=== PATIENT | male | born 1960 | race Caucasian/White ===

== ENCOUNTER 2024-12-08 09:23 | Inpatient (IN) | payer MEDICAID, OTHER ==
[~2024-12-08] VITALS: Ht 182.9 cm; Wt 96.6 kg
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
[2024-12-08] MEDS: SODIUM CHLORIDE 0.9% 1,000 ML IV ONE ×2 (10:00→10:26)
[2024-12-08] MEDS: CLINDAMYCIN 300MG IV 50 ML IV ONE (10:31)
[2024-12-08 10:44] LABS: Hematocrit 41.0 % (41.0-53.0); Hemoglobin 14.5 g/dL (13.5-17.5); Mean Corpuscular Hemoglobin 30.9 pg (28.0-32.0); Mean Corpuscular Volume 87.6 fL (80.0-100.0); Nucleated Red Blood Cells % 0.0 %
--- NOTE | 2024-12-08 10:45 | DVH ---
CLINICAL INFORMATION: Septic joint. TECHNIQUE: Axial CT images of the left elbow were obtained without IV contrast. Coronal and sagittal reformatted images were obtained, reviewed, and stored. All CT scans at this medical facility are pe rformed using dose modulation techniques as appropriate to a performed exam including the following: Automated exposure control was utilized; adjustment of the MA and/or KV according to patient size; an d use of iterative reconstruction technique. CTDIvol = 50.88 mGy DLP = 1839.22 mGy-cm COMPARISON: None FINDINGS: No acute fracture or dislocation. No erosive changes or cortical destruction are seen. No significant joint effusion. Moderate subcutaneous edema and stranding is seen around the elbow and a djacent portions of the distal aspect of the left upper arm and proximal aspect of the left forearm, most prominent posteriorly. There are locules of gas at the posterior aspect of the elbow, along the subcutaneous tissues and adjacent to the superficial fascial planes of the posterior musculature, inc luding the triceps musculature and proximal forearm musculature. Limited evaluation for abscess on no ncontrast enhanced exam. IMPRESSION: 1. Prominent subcutaneous edema and inflammatory stranding along the posterior aspect of the elbow an d adjacent portions of the forearm and upper arm, likely cellulitis in the appropriate clinical setti ng. Locules of gas are seen posteriorly, suspected necrotizing infection. No gas is seen coursing panchito ng the deeper fascial planes at this time to suggest necrotizing fasciitis, although correlation with clinical findings is needed. 2. Limited evaluation for abscess without IV contrast. Abscess can not be excluded. If there is clini wendy concern for abscess, MRI without and with contrast could be considered to further characterize. 3. No significant joint effusion to suggest septic arthritis at this time. 4. No CT evidence for osteomyelitis.
[2024-12-08 11:05] LABS: Chloride 100 mmol/L (98-107); Potassium 3.6 mmol/L (3.5-5.1)
[2024-12-08 11:06] LABS: Anion Gap 10 (5-15); Carbon Dioxide 24 mmol/L (20-31)
[2024-12-08 11:07] LABS: Calcium 9.3 mg/dL (8.7-10.4)
[2024-12-08 11:08] LABS: Sodium 134 mmol/L (136-145)
[2024-12-08 11:11] LABS: BUN/Creatinine Ratio 10.8 (10.0-20.0); Blood Urea Nitrogen 12 mg/dL (9-23)
[2024-12-08 11:13] LABS: Glucose 125 mg/dL (74-106)
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
[2024-12-08 13:10] LABS: INR 1.03 (0.9-1.15); Prothrombin Time 10.9 sec (9.3-11.8)
[2024-12-08] MEDS ORDERED: PROPOFOL 10 MG/ML 20 ML IV ONE (13:29)
[2024-12-08] MEDS ORDERED: fentaNYL CITRATE 100 MCG/2 ML VL ONE (13:29)
[2024-12-08] MEDS ORDERED: HYDROmorphone HCL 2 MG/ML VL/or syr ONE (13:40)
[2024-12-08] MEDS: ceFAZolin 1GM/50ML 50 ML IV ONE ×2 (13:47→13:52)
[2024-12-08] MEDS ORDERED: ONDANSETRON HCL 4 MG/2 ML VIAL ONE (14:11)
[2024-12-08] MEDS ORDERED: NITROGLYCERIN 0.4 MG SL TAB SL PRN (14:15)
[2024-12-08] MEDS ORDERED: MORPHINE SULFATE INJ 2 MG/ml SYRG IV PRN (14:15)
[2024-12-08 14:32] VITALS: PULSE 101; RESP 13; O2SAT 95
[2024-12-08] MEDS ORDERED: HYDROcodone-ACET 5/325MG TAB PO PRN (14:45)
[2024-12-08] MEDS ORDERED: HYDROmorphone HCL 2 MG/ML VL/or syr IV PRN (14:45)
[2024-12-08] MEDS ORDERED: ONDANSETRON HCL 4 MG/2 ML VIAL IV PRN (14:45)
[2024-12-08] MEDS ORDERED: HYDROcodone-ACET 10/325MG TAB PO PRN (14:45)
[2024-12-08] MEDS ORDERED: ACETAMINOPHEN IV 1000 MG/100ML (10MG/ML) IV PRN (14:45)
--- NOTE | 2024-12-08 14:56 | DVHOP2 ---
Operative Report - 2 Report Details Date: 12/08/24 Preop Diagnosis: Necrotizing soft tissue infection of the left elbow Postop Diagnosis: Same Surgeon: Haylee Pires MD Anesthesiologist: Carrie Reynolds Anesthesia: General Consent: The patient was informed of the risks and benefits of the procedure. These include but are not limited to complications of anesthesia, postoperative infection, incomplete relief of symptoms, recurrence of symptoms, damage to blood vessels, nerves and tendons, deep venous thrombosis, pulmonary embolism and possible need for repeat surgery in the future. Complications: None Estimated Blood Loss: 3 mL Findings: Soft tissue edema with minor necrosis, fractured olecranon bursa posteriorly, seropurulent fluid drainage Name of Procedure Performed Left elbow sharp excisional debridement Procedure Details Procedure Details: Upon arrival to the operating room patient was transferred to the operating table and placed in the supine position with arms extended. General endotracheal anesthesia was induced. Patient was prepped and draped in the standard sterile surgical fashion with Betadine Betadine. Left elbow was noted to be edematous, erythematous, with 2 puncture wounds actively draining seropurulent fluid on the posterior aspect of the elbow. The area overlying those 2 puncture wounds was the most fluctuant. A vertical incision was made in the posterior aspect of the elbow, immediately seropurulent fluid started e manating. Incision is approximately 5-6 cm. Cultures were taken. All fluid was then expressed from the wound. Minor subcutaneous fat necrosis was noted and was sharply excised. Fascia and muscle was free of necrosis. No further necrosis was noted. I then noted a fractured olecranon bursa posteriorly. I then obtained hemostasis with cautery device of all raw bleeding surfaces, until hemostasis was achieved. I then irrigated the wound copiously with over a L of saline Betadine mixture. Olecranon bursa was repaired using a 2 0 Vicryl stitch in [id number] fashion. At this point I performed the final inspection of the wound, no pus/necrosis or bleeding noted. Wound was packed with 1 in iodoform gauze. Wound was dressed with Telfa pad, 4 x 4 gauze, ABD pad, and held in place with a 4 in Kerlix roll/Librado wrap. All counts complete and correct at the end of the procedure. Patient tolerated the procedure well. Patient was transferred to the PACU in stable condition. Condition Stable Disposition Still a Patient HAYLEE SPIVEY MD Dec 08, 2024 14:56
[2024-12-08] MEDS: ACETAMINOPHEN IV 100 ML IV ONE (15:12)
[2024-12-08] MEDS: CLINDAMYCIN 600MG IV 50 ML IV SCH (15:18)
[2024-12-08] MEDS ORDERED: VANCOMYCIN PER PHARMACY 0 MG IV SCH (15:30)
[2024-12-08] MEDS: PIPERACILLIN-TAZOB 3.375GM 100 ML IV SCH (16:07)
[2024-12-08 16:26] VITALS: BP 141/74; PULSE 86; RESP 16; TEMP 97.8; O2SAT 94
[2024-12-08] MEDS: VANCOMYCIN 1GM/250ML KIT 250 ML IV SCH ×2 (19:30→20:05)
[2024-12-08 21:00] VITALS: BP 166/94; PULSE 60; RESP 18; TEMP 97.6; O2SAT 96
[2024-12-08 22:00] VITALS: BP 125/66
[2024-12-09 01:00] VITALS: BP 127/75; PULSE 80; RESP 17; TEMP 97.3; O2SAT 93
[2024-12-09 05:00] VITALS: BP 134/73; PULSE 86; RESP 17; TEMP 97.6; O2SAT 95
[2024-12-09 07:41] LABS: Hematocrit 37.8 % (41.0-53.0); Hemoglobin 13.4 g/dL (13.5-17.5); Mean Corpuscular Hemoglobin 31.2 pg (28.0-32.0); Mean Corpuscular Volume 88.4 fL (80.0-100.0); Nucleated Red Blood Cells % 0.0 %
[2024-12-09 08:05] LABS: Alanine Aminotransferase 16 U/L (7-40); Albumin 3.8 g/dL (3.2-4.8); Alkaline Phosphatase 75 U/L (46-116); Anion Gap 10 (5-15); BUN/Creatinine Ratio 15.1 (10.0-20.0); Bilirubin, Total 0.6 mg/dL (0.2-1.0); Blood Urea Nitrogen 13 mg/dL (9-23); Calcium 8.8 mg/dL (8.7-10.4); Carbon Dioxide 22 mmol/L (20-31); Chloride 105 mmol/L (98-107); Sodium 137 mmol/L (136-145); Total Protein 6.5 g/dL (5.7-8.2)
[2024-12-09 08:11] LABS: Glucose 127 mg/dL (74-106); Potassium 3.5 mmol/L (3.5-5.1)
--- NOTE | 2024-12-09 08:45 | DVHPN2 ---
Progress Note - Surgical Date Seen: Dec 09, 2024 Post op day Post op day: 1 Subjective Patient reports: Feels better (Feeling better, pain left elbow has improved, still feels she feels, he is afebrile with vital signs stable.) Review of Systems: Not Done Objective Vital signs Vital Sign Date Time Temp Pulse Resp B/P (MAP) Pulse Ox O2 Delivery O2 Flow Rate FiO2 12/09/24 05:00 97.6 86 17 134/73 (93) 95 97.6 12/08/24 20:15 Room Air* 0 21 Total Intake and Output 12/08/24 12/08/24 12/09/24 15:00 23:00 07:00 Intake Total 550 ml 275 ml Balance 550 ml 275 ml Medications Current Medications Medications Dose Ordered Sig/Ina Route Start Time Stop Time Status Last Admin Dose Admin Piperacillin Sod/ Tazobactam Sod 100 ml @ 100 mls/hr Q8H IV 12/08/24 14:00 12/09/24 06:27 100 MLS/HR Clindamycin Phosphate 50 ml @ 50 mls/hr Q8HR IV 12/08/24 14:00 12/09/24 05:17 50 MLS/HR Nitroglycerin 0.4 mg Q5MINP PRN SL 12/08/24 14:15 Morphine Sulfate 2 mg Q30M PRN IV 12/08/24 14:15 Acetaminophen/ Hydrocodone Bitart 1 tab Q6HR PRN PO 12/08/24 14:45 Acetaminophen/ Hydrocodone Bitart 1 tab Q6HR PRN PO 12/08/24 14:45 Vancomycin HCl 0 ml @ 0 mls/hr UD IV 12/08/24 15:30 Laboratory Laboratory Tests 12/09/24 06:57 Test 12/09/24 06:57 Range/Units Serum Glucose 127 H 74-106 mg/dL Examination: GENERAL:Normal, MSK:Abnormal (Left elbow with posterior wound, wound without necrosis/pus/drainage, medial elbow and upper arm with patchy erythema (unchanged from yesterday), nontender. Very slight edema on left forearm and left hand (much improved from yesterday).) Labs and/or images reviewed: Labs reviewed by me (Leukocytosis down trended by 1 point) Problem List/Assessment/Plan Problems: (1) Necrotizing soft tissue infection Assessment and Plan Mr. Dougherty is a 64-year-old male who presented yesterday with necrotizing soft tissue infection of the left elbow. Currently postop day 1 from sharp excisional debridement of the left elbow. Wound looking good today no pus/drainage/necrosis. Elbow edema has markedly improved. Cellulitic area of the medial elbow and upper arm still the same as yesterday. Leukocytosis down trended by 1 point from 20.1 to X 19.1. Recommend continuation of IV antibiotics. Culture results still pending. 1. Continue with broad-spectrum antibiotics for at least 24 more hours 2. Also wound nurse for the possibility of wound VAC placement 3. Follow-up wound culture results 4. Continue with b.i.d. dressing changes as per order for the time being 5. We will obtain CBC and CMP for tomorrow a.m. My Orders My Orders Orders - HAYLEE SPIVEY MD Procedure Category Date Status Time Vancomycin Per DEVI 12/08/24 In Process Pharmacy Protoc 12:54 Piperacillin-Tazob PHA 12/08/24 In Process 3.375gm (Zosyn 3.375g 14:00 Clindamycin 600mg Iv PHA 12/08/24 In Process (Cleocin Iv) 14:00 Anaerobic Culture TAE 12/08/24 In Process 14:05 Gram Stain TAE 12/08/24 In Process 14:05 Routine Bacterial TAE 12/08/24 In Process Culture 14:05 Admit ADMIT 12/08/24 Transmitted 14:04 Oxygen By Nasal RT 12/08/24 Transmitted Cannula 14:04 Nitroglycerin PHA 12/08/24 In Process Sublingual (Ntrostat 14:15 Morphine Sulfate PHA 12/08/24 In Process Injection 14:15 Stat Ekg For Chest DEVI 12/08/24 In Process Pain 14:04 Notify Of Changes DEVI 12/08/24 In Process From Base 14:04 Meat Lugger For DEVI 12/08/24 In Process 24 Hours 14:04 Emergency Dysrhythmia DEVI 12/08/24 In Process Protocol 14:04 Rhythm Strips Once DEVI 12/08/24 In Process Every Shift 14:04 Hydrocodone-Acet PHA 12/08/24 In Process 10/325mg Tab (Campo 14:45 Hydrocodone-Acet PHA 12/08/24 In Process 5/325mg Tab (Campo 14:45 Change Dressing Bid DEVI 12/09/24 In Process 07:00 Vancomycin Per PHA 12/08/24 In Process Pharmacy 15:30 Hepatitis C Antibody LAB 12/08/24 In Process 18:17 Hepatitis A Total LAB 12/08/24 In Process Antibody 18:17 Clear Liq Diet DIET 12/08/24 Transmitted Dinner Plan discussed with Plan discussed with: Patient Visit Coding Surgery Date of Service if different f: Dec 09, 2024 Billing Provider: HAYLEE SPIVEY MD Surgery Visit Codes: [id number] INP/OBS CARE(HIGH) HAYLEE SPIVEY MD Dec 09, 2024 08:45
[2024-12-09 09:00] VITALS: BP 149/71; PULSE 81; RESP 18; TEMP 98.1; O2SAT 93
[2024-12-09 10:37] LABS: Hepatitis A Total Antibody Positive (Negative); Hepatitis C Antibody Negative (Negative)
[2024-12-09 13:00] VITALS: BP 146/84; PULSE 83; RESP 18; TEMP 98.1; O2SAT 94
[2024-12-09] MEDS: VANCOMYCIN 1.5GM/250ML 250 ML IV SCH (14:21)
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
[2024-12-09] MEDS ORDERED: ONDANSETRON HCL 4 MG/2 ML VIAL IV PRN (16:00)
[2024-12-09] MEDS ORDERED: ACETAMINOPHEN 325 MG TAB PO PRN (16:00)
[2024-12-09 17:02] VITALS: BP 146/77; PULSE 85; RESP 18; TEMP 98.1; O2SAT 94
[2024-12-09 21:00] VITALS: BP 136/79; PULSE 86; RESP 16; TEMP 97.7; O2SAT 96
[2024-12-10] VITALS (7 sets, daily range): BP systolic 129–146; BP diastolic 74–89; PULSE 70–78; RESP 16–18; TEMP 97.7–98.6; O2SAT 94–98
[2024-12-10 06:48] LABS: Hematocrit 32.7 % (41.0-53.0); Hemoglobin 11.6 g/dL (13.5-17.5); Mean Corpuscular Hemoglobin 31.2 pg (28.0-32.0); Mean Corpuscular Volume 87.4 fL (80.0-100.0); Nucleated Red Blood Cells % 0.0 %
[2024-12-10 06:49] LABS: Alanine Aminotransferase 26 U/L (7-40); Alkaline Phosphatase 58 U/L (46-116); Anion Gap 9 (5-15); BUN/Creatinine Ratio 15.7 (10.0-20.0); Blood Urea Nitrogen 14 mg/dL (9-23); Carbon Dioxide 25 mmol/L (20-31); Chloride 107 mmol/L (98-107); Glucose 99 mg/dL (74-106); Sodium 141 mmol/L (136-145)
[2024-12-10 06:51] LABS: Albumin 3.4 g/dL (3.2-4.8); Bilirubin, Total 0.5 mg/dL (0.2-1.0)
[2024-12-10 06:59] LABS: Calcium 8.0 mg/dL (8.7-10.4); Potassium 3.3 mmol/L (3.5-5.1); Total Protein 5.6 g/dL (5.7-8.2)
--- NOTE | 2024-12-10 10:29 | DVHPN2 ---
Progress Note - Surgical Date Seen: Dec 10, 2024 Post op day Post op day: 2 Subjective Patient reports: Feels better (States that swelling is improving left upper extremity, hence running muscle improved we will to move fingers better now. Complaining of some shortness of breath especially when he gets up to bathroom, but other than going to the bathroom patient is not ambulating all. Patient also is not doing IS. Vital signs stable) Review of Systems: Deferred Objective Vital signs Vital Sign Date Time Temp Pulse Resp B/P (MAP) Pulse Ox O2 Delivery O2 Flow Rate FiO2 12/10/24 09:00 98.3 74 18 143/78 (99) 97 98.3 12/09/24 20:00 Nasal Cannula* 2 28 Total Intake and Output 12/09/24 12/09/24 12/10/24 15:00 23:00 07:00 Intake Total 100 ml 950 ml 950 ml Output Total 2 ml Balance 100 ml 950 ml 948 ml Medications Current Medications Medications Dose Ordered Sig/Ina Route Start Time Stop Time Status Last Admin Dose Admin Piperacillin Sod/ Tazobactam Sod 100 ml @ 100 mls/hr Q8H IV 12/08/24 14:00 12/10/24 00:29 100 MLS/HR Clindamycin Phosphate 50 ml @ 50 mls/hr Q8HR IV 12/08/24 14:00 12/10/24 05:38 50 MLS/HR Nitroglycerin 0.4 mg Q5MINP PRN SL 12/08/24 14:15 Morphine Sulfate 2 mg Q30M PRN IV 12/08/24 14:15 Acetaminophen/ Hydrocodone Bitart 1 tab Q6HR PRN PO 12/08/24 14:45 Acetaminophen/ Hydrocodone Bitart 1 tab Q6HR PRN PO 12/08/24 14:45 Hold Vancomycin HCl 0 ml @ 0 mls/hr UD IV 12/08/24 15:30 Vancomycin HCl 250 ml @ 166.667 mls/hr Q12H IV 12/09/24 13:00 12/10/24 01:44 166.667 MLS/HR Ondansetron HCl 4 mg Q6HPRN PRN IV 12/09/24 16:00 Acetaminophen 325 mg Q6HP PRN PO 12/09/24 16:00 Laboratory Laboratory Tests 12/10/24 06:03 Test 12/10/24 06:03 Range/Units Serum Glucose 99 74-106 mg/dL Microbiology Date/Time Source Procedure Growth Status 12/08/24 14:03 Other Gram Stain - Final Resulted 12/08/24 14:03 Other Anaerobic Culture - Preliminary Resulted 12/08/24 14:03 Other Aerobic Culture - Preliminary Resulted 12/08/24 10:22 Blood Blood Culture - Preliminary NO GROWTH AFTER 24 HOURS OF INCUBATION. Resulted Examination: GENERAL:Normal, MSK:Abnormal (Left elbow slight edema, no edema in the forearm, slight hand edema without finger edema, patch of erythema on the medial aspect of the elbow and upper arm improved from yesterday. Wound without pus/drainage/necrosis.) Problem List/Assessment/Plan Assessment and Plan Mr. Dougherty is a 64-year-old male who presented yesterday with necrotizing soft tissue infection of the left elbow. Currently postop day 2 from sharp excisional debridement of the left elbow. Wound looking good today no pus/drainage/necrosis. Wound continues to improve still pending evaluation from wound nurse for possible wound VAC placement. Cellulitis on the medial aspect of the elbow and upper arm slightly improved but still present. Leukocytosis still holding in 19. Recommend continuation of IV antibiotics. Culture results still pending. 1. Continue with broad-spectrum antibiotics, still pending cultures 2. Also wound nurse for the possibility of wound VAC placement 3. Follow-up wound culture results 4. Continue with b.i.d. dressing changes as per order for the time being 5. We will obtain CBC and CMP for tomorrow a.m. 6. Out of bed and ambulate at least t.i.d. 7. Nurse to bring incentive spirometer to the patient My Orders My Orders Orders - HAYLEE SPIVEY MD Procedure Category Date Status Time Vancomycin PHA 12/09/24 In Process 1.5gm/250ml 13:00 Vancomycin,Trough LAB 12/11/24 Verified 00:00 Vancomycin Per DEVI 12/11/24 In Process Pharmacy Protoc 01:00 Creatinine LAB 12/11/24 Verified 00:00 Plan discussed with Plan discussed with: Patient Visit Coding Surgery Date of Service if different f: Dec 10, 2024 Billing Provider: HAYLEE SPIVEY MD Surgery Visit Codes: [id number] INP/OBS CARE(HIGH) HAYLEE SPIVEY MD Dec 10, 2024 10:29
--- NOTE | 2024-12-10 11:38 | DVHPN2 ---
Subjective Patient continues to report having shortness of breath with ambulation. Reviewed: Care Plan, H&P, Labs, Medications Changes from previous H/P or p: No Changes General: Per HPI Skin: Other (left elbow dressing dry and intact) Objective Vitals Vital Signs Date Time Temp Pulse Resp B/P (MAP) Pulse Ox O2 Delivery O2 Flow Rate FiO2 12/10/24 09:00 98.3 74 18 143/78 (99) 97 98.3 12/10/24 08:00 Nasal Cannula* 2 28 Intake/Output Intake and Output 12/10/24 07:00 Intake Total 2000 ml Output Total 2 ml Balance 1998 ml Intake Oral 1100 ml IV Total 900 ml Output Urine Total 2 ml # Voids 2 # Bowel Movements 2 General Appearance: Alert, Oriented X3, Cooperative, mild distress HEENT: Atraumatic, PERRLA Cardiovascular: Normal S1, Normal S2 Musculoskeletal: Normal sensory function, Normal motor function Skin: Dry, Intact Psych/Mental Status: Mental status NL, Mood NL Medications Current Medications Medications Dose Ordered Sig/Ina Route Start Time Stop Time Status Last Admin Dose Admin Piperacillin Sod/ Tazobactam Sod 100 ml @ 100 mls/hr Q8H IV 12/08/24 14:00 12/10/24 00:29 100 MLS/HR Clindamycin Phosphate 50 ml @ 50 mls/hr Q8HR IV 12/08/24 14:00 12/10/24 05:38 50 MLS/HR Nitroglycerin 0.4 mg Q5MINP PRN SL 12/08/24 14:15 Morphine Sulfate 2 mg Q30M PRN IV 12/08/24 14:15 Acetaminophen/ Hydrocodone Bitart 1 tab Q6HR PRN PO 12/08/24 14:45 Acetaminophen/ Hydrocodone Bitart 1 tab Q6HR PRN PO 12/08/24 14:45 Hold Vancomycin HCl 0 ml @ 0 mls/hr UD IV 12/08/24 15:30 Vancomycin HCl 250 ml @ 166.667 mls/hr Q12H IV 12/09/24 13:00 12/10/24 01:44 166.667 MLS/HR Ondansetron HCl 4 mg Q6HPRN PRN IV 12/09/24 16:00 Acetaminophen 325 mg Q6HP PRN PO 12/09/24 16:00 Laboratory Results Laboratory Tests 12/10/24 06:03 Chemistry Test 12/10/24 06:03 Albumin 3.4 g/dL (3.2-4.8) Calcium Level 8.0 mg/dL (8.7-10.4) L Total Protein 5.6 g/dL (5.7-8.2) L Lipid panel Test 12/10/24 06:03 Cholesterol Level Pending HDL Cholesterol Pending Triglycerides Level Pending LFT Test 12/10/24 06:03 Alanine Aminotransferase (ALT) 26 U/L (7-40) Alkaline Phosphatase 58 U/L (46-116) Aspartate Amino Transferase (AST) 24 U/L (13-40) Total Bilirubin 0.5 mg/dL (0.2-1.0) HgA1c, TSH Test 12/10/24 06:03 Thyroid Stimulating Hormone (TSH) Pending Microbiology Microbiology Date/Time Source Procedure Growth Status 12/08/24 14:03 Other Gram Stain - Final Resulted 12/08/24 14:03 Other Anaerobic Culture - Preliminary Resulted 12/08/24 14:03 Other Aerobic Culture - Preliminary Resulted 12/08/24 10:22 Blood Blood Culture - Preliminary NO GROWTH AFTER 48 HOURS OF INCUBATION. Resulted Labs and/or images reviewed: Labs reviewed by me, Image(s) reviewed by me Assessment/Plan Assessment/Plan Impression: -necrotizing fasciitis of the left elbow -sepsis Plan: Events: Patient continues to have elevated white blood cell count. Afebrile. Continues to have some shortness of breath. Discussed case with surgeon. K -chest x-ray -out of bed as tolerated -incentive spirometer -wound care -continue antibiotic therapy with Zosyn, vancomycin, clindamycin -pain management -repeat labs in a.m. -potassium replacement Total time spent with patient discussing and formulating plan of care: 35 minutes. This medical document was created using an electronic medical record system with [email or web address] dictation system. Although this document has been carefully reviewed, there may still be some phonetic and typographical errors. These areas are purely typographical due to imperfections of the software programs, and do not reflect any compromise in the patient's medical care. Plan discussed with: Patient, Other (RN) My Orders Orders - THALIA RYAN NP Procedure Category Date Status Time Regular Diet DIET 12/09/24 Transmitted Dinner Ondansetron Hcl PHA 12/09/24 In Process (Zofran) 16:00 Acetaminophen Tablet PHA 12/09/24 In Process (Tylenol Tablet) 16:00 Sod Chl 0.9%/ Kcl PHA 12/10/24 In Process [id number] 11:00 Basic Metabolic Panel LAB 12/11/24 Verified 05:00 Basic Metabolic Panel LAB 12/12/24 Verified 05:00 Basic Metabolic Panel LAB 12/13/24 Verified 05:00 Complete Blood Count LAB 12/11/24 Verified 05:00 Complete Blood Count LAB 12/12/24 Verified 05:00 Complete Blood Count LAB 12/13/24 Verified 05:00 Chest Xray 1 View XY 12/10/24 Logged 11:09 Creatine Kinase LAB 12/10/24 In Process 11:09 Thyroid Stimulating LAB 12/10/24 In Process Hormone 11:09 Lipid Panel LAB 12/10/24 In Process 11:09 Date of Service: Dec 10, 2024 Billing Provider: THALIA RYAN NP Common Visit Codes: [id number] INP/OBS CARE(HIGH) THALIA RYAN NP Dec 10, 2024 11:38
[2024-12-10 11:43] LABS: Creatine Kinase IFCC 140 U/L (46-171)
--- NOTE | 2024-12-10 12:41 | DVH ---
CHEST RADIOGRAPH Indication: PNA VS CHF Technique: Single frontal view of the chest was obtained Comparison: None FINDINGS: Lines and Tubes: None Lungs: No focal consolidation. Pleura: No effusion. No pneumothorax. Cardiomediastinal contours: Unremarkable Bones: No acute osseous abnormality. IMPRESSION: No acute cardiopulmonary disease.
[2024-12-10] MEDS: SOD CHL 0.9%/ KCL 40MEQ 1,000 ML IV ONE (16:25)
[2024-12-10 20:12] LABS: Triglycerides 128 mg/dL (< 150)
[2024-12-10 20:14] LABS: Cholesterol 151 mg/dL (< 200)
[2024-12-10 20:17] LABS: HDL Cholesterol 20 mg/dL (40-59)
[2024-12-11] VITALS (11 sets, daily range): BP systolic 120–144; BP diastolic 70–101; PULSE 70–80; RESP 16–19; TEMP 97.7–98.4; O2SAT 9–100
[2024-12-11 06:31] LABS: Hematocrit 34.1 % (41.0-53.0); Hemoglobin 12.2 g/dL (13.5-17.5); Mean Corpuscular Hemoglobin 31.7 pg (28.0-32.0); Mean Corpuscular Volume 88.3 fL (80.0-100.0); Nucleated Red Blood Cells % 0.0 %
[2024-12-11 06:41] LABS: Anion Gap 10 (5-15); Carbon Dioxide 26 mmol/L (20-31); Sodium 144 mmol/L (136-145)
[2024-12-11 06:43] LABS: Calcium 8.2 mg/dL (8.7-10.4); Chloride 108 mmol/L (98-107); Potassium 3.3 mmol/L (3.5-5.1)
[2024-12-11 06:47] LABS: BUN/Creatinine Ratio 13.3 (10.0-20.0); Blood Urea Nitrogen 12 mg/dL (9-23); Glucose 84 mg/dL (74-106)
--- NOTE | 2024-12-11 09:12 | DVHPN2 ---
Subjective Patient reports phlegm, stage shortness has improved. Reviewed: Care Plan, H&P, Labs, Medications Changes from previous H/P or p: Changes General: Per HPI Skin: Other (left elbow dressing dry and intact) Objective Vitals Vital Signs Date Time Temp Pulse Resp B/P (MAP) Pulse Ox O2 Delivery O2 Flow Rate FiO2 12/11/24 05:00 97.7 80 16 144/101 (115) 9 97.7 12/10/24 20:00 Room Air* 0 21 Intake/Output Intake and Output 12/11/24 07:00 Intake Total 2050 ml Balance 2050 ml Intake Oral 1750 ml IV Total 300 ml # Voids 9 # Bowel Movements 1 General Appearance: Alert, Oriented X3, Cooperative, mild distress HEENT: Atraumatic, PERRLA Cardiovascular: Normal S1, Normal S2 Musculoskeletal: Normal sensory function, Normal motor function Skin: Dry, Intact Psych/Mental Status: Mental status NL, Mood NL Medications Current Medications Medications Dose Ordered Sig/Ina Route Start Time Stop Time Status Last Admin Dose Admin Piperacillin Sod/ Tazobactam Sod 100 ml @ 100 mls/hr Q8H IV 12/08/24 14:00 12/11/24 09:05 100 MLS/HR Clindamycin Phosphate 50 ml @ 50 mls/hr Q8HR IV 12/08/24 14:00 12/11/24 05:44 50 MLS/HR Nitroglycerin 0.4 mg Q5MINP PRN SL 12/08/24 14:15 Morphine Sulfate 2 mg Q30M PRN IV 12/08/24 14:15 Acetaminophen/ Hydrocodone Bitart 1 tab Q6HR PRN PO 12/08/24 14:45 Acetaminophen/ Hydrocodone Bitart 1 tab Q6HR PRN PO 12/08/24 14:45 Hold Vancomycin HCl 0 ml @ 0 mls/hr UD IV 12/08/24 15:30 Vancomycin HCl 250 ml @ 166.667 mls/hr Q12H IV 12/09/24 13:00 12/11/24 01:58 166.667 MLS/HR Ondansetron HCl 4 mg Q6HPRN PRN IV 12/09/24 16:00 Acetaminophen 325 mg Q6HP PRN PO 12/09/24 16:00 Laboratory Results Laboratory Tests 12/11/24 05:50 Chemistry Test 12/11/24 05:50 Calcium Level 8.2 mg/dL (8.7-10.4) L Microbiology Microbiology Date/Time Source Procedure Growth Status 12/08/24 14:03 Other Gram Stain - Final Resulted 12/08/24 14:03 Other Anaerobic Culture - Preliminary Resulted 12/08/24 14:03 Other Aerobic Culture - Preliminary Resulted 12/08/24 10:22 Blood Blood Culture - Preliminary NO GROWTH AFTER 48 HOURS OF INCUBATION. Resulted Labs and/or images reviewed: Labs reviewed by me, Image(s) reviewed by me Assessment/Plan Assessment/Plan Impression: -necrotizing fasciitis of the left elbow -sepsis Plan: Events: White blood cell count improving. Patient reporting having some facial swelling. Chest x-ray unremarkable. CPK normal. -incentive spirometer q.1h while awake -stop vancomycin given preliminary cultures. Continue Zosyn and clindamycin -ambulate, out of bed as tolerated -wound care -continue Zosyn and clindamycin -pain management -repeat labs in a.m. -potassium replacement Total time spent with patient discussing and formulating plan of care: 35 minutes. This medical document was created using an electronic medical record system with [employer] dictation system. Although this document has been carefully reviewed, there may still be some phonetic and typographical errors. These areas are purely typographical due to imperfections of the software programs, and do not reflect any compromise in the patient's medical care. Plan discussed with: Patient, Other (RN) My Orders Orders - THALIA RYAN NP Procedure Category Date Status Time Basic Metabolic Panel LAB 12/12/24 Verified 05:00 Basic Metabolic Panel LAB 12/13/24 Verified 05:00 Complete Blood Count LAB 12/12/24 Verified 05:00 Complete Blood Count LAB 12/13/24 Verified 05:00 Chest Xray 1 View XY 12/10/24 Resulted 11:09 * Dietary Consult CONS 12/10/24 Transmitted 15:19 Oob To Chair DEVI 12/11/24 Transmitted 09:09 Ambulate DEVI 12/11/24 Transmitted 09:09 Incentive Spirometry ORDERS 12/11/24 Verified Q 1hr 09:10 Date of Service: Dec 11, 2024 Billing Provider: THALIA RYAN NP Common Visit Codes: [id number] INP/OBS CARE(HIGH) THALIA RYAN NP Dec 11, 2024 09:12
[2024-12-11] MEDS: ALBUTEROL SULF 2.5 MG/0.5ML(0.5%) NEB SOLN NEB SCH (11:30)
[2024-12-11] MEDS: ALBUTEROL SULF 2.5 MG/0.5ML(0.5%) NEB SOLN NEB ONE (11:30)
[2024-12-11] MEDS: POTASSIUM CHL 20 Meq TABLET PO ONE (11:34)
[2024-12-11] MEDS: diphenhdrAMINE HCL 50 MG/1 ML VL IV ONE (11:34)
[2024-12-11] MEDS: methylPREDNISolone SOD SUCC 125 MG/2 ML VL IV ONE (11:35)
--- NOTE | 2024-12-11 13:58 | DVHPN2 ---
Progress Note - Surgical Date Seen: Dec 11, 2024 Post op day Post op day: 3 Subjective Patient reports: Feels better (States he is feeling way better, left arm keeps improving. Afebrile with vital stable) Review of Systems: Deferred Objective Vital signs Vital Sign Date Time Temp Pulse Resp B/P (MAP) Pulse Ox O2 Delivery O2 Flow Rate FiO2 12/11/24 11:39 98.1 71 18 129/94 98 2.0 28 98.1 12/11/24 11:30 Nasal Cannula* Total Intake and Output 12/10/24 12/10/24 12/11/24 15:00 23:00 07:00 Intake Total 1100 ml 950 ml Balance 1100 ml 950 ml Medications Current Medications Medications Dose Ordered Sig/Ina Route Start Time Stop Time Status Last Admin Dose Admin Piperacillin Sod/ Tazobactam Sod 100 ml @ 100 mls/hr Q8H IV 12/08/24 14:00 12/11/24 09:05 100 MLS/HR Clindamycin Phosphate 50 ml @ 50 mls/hr Q8HR IV 12/08/24 14:00 12/11/24 05:44 50 MLS/HR Nitroglycerin 0.4 mg Q5MINP PRN SL 12/08/24 14:15 Morphine Sulfate 2 mg Q30M PRN IV 12/08/24 14:15 Acetaminophen/ Hydrocodone Bitart 1 tab Q6HR PRN PO 12/08/24 14:45 Acetaminophen/ Hydrocodone Bitart 1 tab Q6HR PRN PO 12/08/24 14:45 Hold Ondansetron HCl 4 mg Q6HPRN PRN IV 12/09/24 16:00 Acetaminophen 325 mg Q6HP PRN PO 12/09/24 16:00 Albuterol 2.5 mg Q6HWA NEB 12/11/24 12:00 Laboratory Laboratory Tests 12/11/24 05:50 Test 12/11/24 05:50 Range/Units Serum Glucose 84 74-106 mg/dL Microbiology Date/Time Source Procedure Growth Status 12/08/24 14:03 Other Gram Stain - Final Resulted 12/08/24 14:03 Other Anaerobic Culture - Preliminary Resulted 12/08/24 14:03 Other Aerobic Culture - Preliminary Resulted 12/08/24 10:22 Blood Blood Culture - Preliminary NO GROWTH AFTER 72 HOURS OF INCUBATION. Resulted Examination: GENERAL:Normal, MSK:Abnormal (Left upper extremity posterior elbow wound healing well no surrounding erythema, no pus, no drainage, no necrosis, patch of cellulitis on the medial aspect of the left elbow and upper arm improving/it is less erythematous and less edematous. No crepitus) Labs and/or images reviewed: Labs reviewed by me (Leukocytosis down trending from 19-13) Problem List/Assessment/Plan Assessment and Plan Mr. Dougherty is a 64-year-old male who presented yesterday with necrotizing soft tissue infection of the left elbow. Currently postop day 3 from sharp excisional debridement of the left elbow. Wound looking good today no pus/drainage/necrosis/no erythema. Wound is healing very well no need for additional debridement, just continue local care with b.i.d. dressing changes as ordered. Final cultures are still pending but only growing so far aerobic Gram- positive organisms. 1. Continue with broad-spectrum antibiotics, still pending cultures 2. Follow-up wound culture results 3. Continue with b.i.d. dressing changes as per order for the time being 4. Out of bed and ambulate at least t.i.d. 5. Continue with incentive spirometry Plan discussed with Plan discussed with: Patient Visit Coding Surgery Date of Service if different f: Dec 11, 2024 Billing Provider: HAYLEE SPIVEY MD Surgery Visit Codes: [id number] INP/OBS CARE(MOD) HAYLEE SPIVEY MD Dec 11, 2024 13:58
[2024-12-11] MEDS: FAMOTIDINE INJECTION 40 MG in SODIUM CHL 0.9% 100 ML IV ONE (14:26)
[2024-12-11] MEDS: PIPERACILLIN-TAZOB 3.375GM 100 ML IV SCH (17:23)
[2024-12-12] VITALS (10 sets, daily range): BP systolic 130–144; BP diastolic 85–98; PULSE 69–84; RESP 16–19; TEMP 97.5–98.7; O2SAT 95–100
[2024-12-12 07:19] LABS: Anion Gap 9 (5-15); Carbon Dioxide 24 mmol/L (20-31); Potassium 3.8 mmol/L (3.5-5.1); Sodium 142 mmol/L (136-145)
[2024-12-12 07:20] LABS: Calcium 8.8 mg/dL (8.7-10.4)
[2024-12-12 07:23] LABS: Hematocrit 38.3 % (41.0-53.0); Hemoglobin 13.2 g/dL (13.5-17.5); Mean Corpuscular Hemoglobin 31.0 pg (28.0-32.0); Mean Corpuscular Volume 90.3 fL (80.0-100.0)
[2024-12-12 07:25] LABS: BUN/Creatinine Ratio 14.3 (10.0-20.0); Blood Urea Nitrogen 11 mg/dL (9-23); Glucose 103 mg/dL (74-106)
[2024-12-12 07:32] LABS: Chloride 109 mmol/L (98-107)
[2024-12-12 09:01] LABS: Total Cells Counted 100.0 (100)
[2024-12-12] MEDS: diphenhdrAMINE HCL 50 MG/1 ML VL IV ONE (11:40)
--- NOTE | 2024-12-12 12:01 | DVHPN2 ---
Subjective Patient had shortness of breath and facial swelling yesterday. Today, patient has hives to both armpits, neck, inguinal area after receiving Zosyn. Reviewed: Care Plan, H&P, Labs, Medications Changes from previous H/P or p: Changes General: Per HPI Skin: Other (left elbow dressing dry and intact) Objective Vitals Vital Signs Date Time Temp Pulse Resp B/P (MAP) Pulse Ox O2 Delivery O2 Flow Rate FiO2 12/12/24 09:00 98.0 69 19 138/91 (107) 97 98.0 12/11/24 20:00 Room Air* 0 21 Intake/Output Intake and Output 12/12/24 07:00 Intake Total 650 ml Output Total 1200 ml Balance -550 ml Intake Oral 450 ml IV Total 200 ml Output Urine Total 1200 ml # Voids 6 # Bowel Movements 2 General Appearance: Alert, Oriented X3, Cooperative, mild distress HEENT: Atraumatic, PERRLA Cardiovascular: Normal S1, Normal S2 Musculoskeletal: Normal sensory function, Normal motor function Skin: Dry, Intact Psych/Mental Status: Mental status NL, Mood NL Medications Current Medications Medications Dose Ordered Sig/Ina Route Start Time Stop Time Status Last Admin Dose Admin Clindamycin Phosphate 50 ml @ 50 mls/hr Q8HR IV 12/08/24 14:00 12/12/24 06:01 50 MLS/HR Nitroglycerin 0.4 mg Q5MINP PRN SL 12/08/24 14:15 Morphine Sulfate 2 mg Q30M PRN IV 12/08/24 14:15 Acetaminophen/ Hydrocodone Bitart 1 tab Q6HR PRN PO 12/08/24 14:45 Acetaminophen/ Hydrocodone Bitart 1 tab Q6HR PRN PO 12/08/24 14:45 Hold Ondansetron HCl 4 mg Q6HPRN PRN IV 12/09/24 16:00 Acetaminophen 325 mg Q6HP PRN PO 12/09/24 16:00 Albuterol 2.5 mg Q6HWA NEB 12/11/24 12:00 12/11/24 18:03 2.5 MG Famotidine 20 mg Q12HR PO 12/12/24 22:00 UNV Diphenhydramine HCl 25 mg Q6HR PRN PO 12/12/24 18:00 12/13/24 12:01 UNV Laboratory Results Laboratory Tests 12/12/24 06:09 Chemistry Test 12/12/24 06:09 Calcium Level 8.8 mg/dL (8.7-10.4) Microbiology Microbiology Date/Time Source Procedure Growth Status 12/08/24 14:03 Other Gram Stain - Final Resulted 12/08/24 14:03 Other Anaerobic Culture - Preliminary Resulted 12/08/24 14:03 Other Aerobic Culture - Final Resulted 12/08/24 10:22 Blood Blood Culture - Preliminary NO GROWTH AFTER 72 HOURS OF INCUBATION. Resulted Labs and/or images reviewed: Labs reviewed by me, Image(s) reviewed by me Assessment/Plan Assessment/Plan Impression: -necrotizing fasciitis of the left elbow -sepsis -angioedema with anaphylaxis Plan: Events: Patient had worsening facial swelling, wheezing yesterday. Patient was given IV steroids, H1, H2 katja. Symptoms resolved. Vancomycin was stopped yesterday. Today, patient had reoccurrence on hives while receiving Zosyn. -incentive spirometer q.1h while awake -continue clindamycin, stop Zosyn and vancomycin, start Levaquin -ambulate, out of bed as tolerated -wound care -pain management -repeat labs in a.m. Total time spent with patient discussing and formulating plan of care: 35 minutes. This medical document was created using an electronic medical record system with [employer] dictation system. Although this document has been carefully reviewed, there may still be some phonetic and typographical errors. These areas are purely typographical due to imperfections of the software programs, and do not reflect any compromise in the patient's medical care. Plan discussed with: Patient, Other (RN) My Orders Orders - THALIA RYAN NP Procedure Category Date Status Time Famotidine Tablet PHA 12/12/24 Logged (Pepcid Tablet) 22:00 Diphenhdramine PHA 12/12/24 Logged Capsule (Benadryl 18:00 Levofloxacin Levaquin PHA 12/13/24 Verified 22:00 Date of Service: Dec 12, 2024 Billing Provider: THALIA RYAN NP Common Visit Codes: [id number] INP/OBS CARE(HIGH) THALIA RYAN NP Dec 12, 2024 12:00
--- NOTE | 2024-12-12 15:01 | DVHPN2 ---
Progress Note - Surgical Date Seen: Dec 12, 2024 Post op day Post op day: 4 Subjective Patient reports: Feels better (Patient is feeling better although states that he had a allergic reaction to the antibiotics last night, currently tolerating diet, afebrile with vital signs stable.) Review of Systems: Deferred Objective Vital signs Vital Sign Date Time Temp Pulse Resp B/P (MAP) Pulse Ox O2 Delivery O2 Flow Rate FiO2 12/12/24 13:00 98.0 84 17 144/98 (113) 99 98.0 12/12/24 10:00 Nasal Cannula 2.0 12/12/24 10:00 28 Total Intake and Output 12/11/24 12/11/24 12/12/24 15:00 23:00 07:00 Intake Total 100 ml 550 ml Output Total 1200 ml Balance -1100 ml 550 ml Medications Current Medications Medications Dose Ordered Sig/Ina Route Start Time Stop Time Status Last Admin Dose Admin Clindamycin Phosphate 50 ml @ 50 mls/hr Q8HR IV 12/08/24 14:00 12/12/24 14:06 50 MLS/HR Nitroglycerin 0.4 mg Q5MINP PRN SL 12/08/24 14:15 Morphine Sulfate 2 mg Q30M PRN IV 12/08/24 14:15 Acetaminophen/ Hydrocodone Bitart 1 tab Q6HR PRN PO 12/08/24 14:45 Acetaminophen/ Hydrocodone Bitart 1 tab Q6HR PRN PO 12/08/24 14:45 Hold Ondansetron HCl 4 mg Q6HPRN PRN IV 12/09/24 16:00 Acetaminophen 325 mg Q6HP PRN PO 12/09/24 16:00 Albuterol 2.5 mg Q6HWA NEB 12/11/24 12:00 12/11/24 18:03 2.5 MG Famotidine 20 mg Q12HR PO 12/12/24 22:00 Diphenhydramine HCl 25 mg Q6HR PRN PO 12/12/24 18:00 12/13/24 12:01 Levofloxacin/ Dextrose 100 ml @ 100 mls/hr DAILY IV 12/13/24 22:00 Laboratory Laboratory Tests 12/12/24 06:09 Test 12/12/24 06:09 Range/Units Serum Glucose 103 74-106 mg/dL Microbiology Date/Time Source Procedure Growth Status 12/08/24 14:03 Other Gram Stain - Final Resulted 12/08/24 14:03 Other Anaerobic Culture - Preliminary Resulted 12/08/24 14:03 Other Aerobic Culture - Final Resulted 12/08/24 10:22 Blood Blood Culture - Preliminary NO GROWTH AFTER 72 HOURS OF INCUBATION. Resulted Examination: GENERAL:Normal, MSK:Abnormal (Left elbow wound without erythema/edema/pus/drainage/necrosis/crepitus, medial arm cellulitis much improved erythema almost entirely gone, no edema on the left forearm or hand) Labs and/or images reviewed: Labs reviewed by me (Leukocytosis increased to 20, this could be reactive to he has antibiotic reaction, wound is healing very well) Problem List/Assessment/Plan Assessment and Plan Mr. Dougherty is a 64-year-old male who presented to the hospital with necrotizing soft tissue infection of the left elbow. Currently postop day 4 from sharp excisional debridement of the left elbow. Wound looking good today no pus/drainage/necrosis/no erythema. Wound is healing very well no need for additional debridement, just continue local care with b.i.d. dressing changes as ordered. Final cultures grew aerobic Gram-positive organisms, patient has been on vanc/Zosyn/clindamycin since admission. Last night he had an allergic reaction to the antibiotics and they were de-escalated today. Leukocytosis on today's labs likely due to allergic reaction to antibiotics, wound this morning looks great no necrosis, no pus, no drainage. Wound is healing very well 1. Deescalate antibiotics 2. Continue with b.i.d. dressing changes as per order 3. Out of bed and ambulate at least t.i.d. 4. Continue with incentive spirometry 5. We will sign off at this time, please call with any questions and concerns 6. Patient will need to follow-up in 1 week post discharge at [facility] surgery Clinic with Dr. Reeves. Plan discussed with Plan discussed with: Patient Visit Coding Surgery Date of Service if different f: Dec 12, 2024 Billing Provider: HAYLEE SPIVEY MD Surgery Visit Codes: [id number] INP/OBS CARE(HIGH) HAYLEE SPIVEY MD Dec 12, 2024 15:01
[2024-12-12] MEDS: FAMOTIDINE 20 MG TAB PO SCH (21:13)
[2024-12-13] VITALS (10 sets, daily range): BP systolic 113–138; BP diastolic 76–91; PULSE 73–87; RESP 16–18; TEMP 97.5–99.2; O2SAT 96–100
[2024-12-13 05:31] LABS: Anion Gap 10 (5-15); Carbon Dioxide 26 mmol/L (20-31); Chloride 106 mmol/L (98-107); Hematocrit 38.4 % (41.0-53.0); Hemoglobin 13.4 g/dL (13.5-17.5); Mean Corpuscular Hemoglobin 31.1 pg (28.0-32.0); Mean Corpuscular Volume 89.2 fL (80.0-100.0); Nucleated Red Blood Cells % 0.1 %; Potassium 4.0 mmol/L (3.5-5.1); Sodium 142 mmol/L (136-145)
[2024-12-13 05:37] LABS: Glucose 80 mg/dL (74-106)
[2024-12-13 05:38] LABS: BUN/Creatinine Ratio 15.7 (10.0-20.0); Blood Urea Nitrogen 14 mg/dL (9-23)
[2024-12-13 05:39] LABS: Calcium 8.6 mg/dL (8.7-10.4)
[2024-12-13] MEDS ORDERED: SACC250C PO (13:31)
[2024-12-13] MEDS ORDERED: CLIN1CAP70 PO (13:31)
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
== END 2024-12-13 17:00 | disposition home or self-care (01) | DRG 720 ==
LOC: ER 09:23 → OVERFLOW 14:04 → EAST 16:10
PROVIDERS: ADMIT Nurse Practitioner Acute Care; ATTEND Nurse Practitioner Acute Care
PROC: 0JBH0ZZ Excision of Left Lower Arm Subcutaneous Tissue and Fascia, Open Approach (ICD-10-PCS; principal; 2024-12-08 13:50)
DX: A41.9 Sepsis, unspecified organism (principal); M72.6 Necrotizing fasciitis; T78.3XXA Angioneurotic edema, initial encounter; F19.20 Other psychoactive substance dependence, uncomplicated; L03.114 Cellulitis of left upper limb; L02.414 Cutaneous abscess of left upper limb; Z88.0 Allergy status to penicillin; T88.6XXA Anaphylactic reaction due to adverse effect of correct drug or medicament properly administered, initial encounter; T50.995A Adverse effect of other drugs, medicaments and biological substances, initial encounter; Y92.89 Other specified places as the place of occurrence of the external cause
CPT/HCPCS: 36415; 71045; 73200; 80048; 80053; 80061; 80202; 82550; 82565; 83605; 84443; 85007; 85025; 85027; 85610; 86708; 86803; 87040; 87070; 87075; 87205; 94640; 96365; 96375; 99291; 99292; G0378; J0131; J1100; J2405; J2543; J2704; J3490